=== PATIENT | male | born 1995 | race Hispanic/Latino ===

== ENCOUNTER 2017-03-09 07:45 | Emergency (ER) | payer OTHER ==
[~2017-03-09] VITALS: Ht 180.3 cm; Wt 81.5 kg
[2017-03-09] MEDS ORDERED: TYLE325C PO (07:59)
[2017-03-09] MEDS ORDERED: MOTR200T44 PO (07:59)
[2017-03-09] MEDS ORDERED: MAGIC MOUTHWASH SUSPENSION BTL SS ONE (08:30)
[2017-03-09] MEDS ORDERED: NS 1,000 ML IV ONE (08:30)
[2017-03-09] MEDS ORDERED: ACETAMINOPHEN SUSP DYE FREE 160 MG/5 ML UDC PO ONE (08:30)
[2017-03-09] MEDS ORDERED: KETOROLAC 30 MG/ML VIAL (J1885) IV ONE (08:30)
[2017-03-09] MEDS ORDERED: dexameTHASONE 20 MG/5 ML VIAL (J1100) IV ONE (08:30)
[2017-03-09 09:29] LABS: BASO % 0.3 % (0.0-1.0); IMMATURE GRANULOCYTE % 0.6 % (0-0); LYMPH # 1.4 10^3/uL (1.5-6.5); LYMPH % 8.8 % (24.0-44.0); MEAN CORPUSCULAR HEMOGLOBIN 31.3 pg (27.0-33.0); MEAN CORPUSCULAR HGB CONC 33.4 g/dl (32.0-36.5); MEAN CORPUSCULAR VOLUME 93.6 fl (80.0-96.0); MONO % 12.8 % (0.0-5.0); NEUTROPHILS % 77.5 % (36.0-66.0); PLATELET COUNT, AUTOMATED 212 10^3/uL (150-450); RED CELL DISTRIBUTION WIDTH 13.2 % (11.5-14.5); WHITE BLOOD COUNT 15.4 10^3/uL (4.0-10.0)
[2017-03-09 09:38] LABS: ANION GAP 9 MEQ/L (8-16); BLOOD UREA NITROGEN 14 MG/DL (7-18); CALCIUM LEVEL 9.3 MG/DL (8.5-10.1); CARBON DIOXIDE LEVEL 28 MEQ/L (21-32); CHLORIDE LEVEL 100 MEQ/L (98-107); CREATININE FOR GFR 1.03 MG/DL (0.70-1.30); GLUCOSE, FASTING 86 MG/DL (70-105); POTASSIUM SERUM 3.9 MEQ/L (3.5-5.1); SODIUM LEVEL 137 MEQ/L (136-145)
[2017-03-09 10:06] LABS: ERYTHROCYTE SEDIMENTATION RATE 7 mm/hr (0-15)
[2017-03-09] MEDS ORDERED: ISOVUE-370 76% 100ML VIAL (Q9967) As Ordered ONE (10:08)
--- NOTE | 2017-03-09 11:13 | REP ---
CT NECK WITH CONTRAST: HISTORY: Swelling. CONTRAST: Isovue 370, 75 mL. Calcification is present in the right tonsil. This is secondary to previous inflammatory disease. There is enlargement of the tonsils greater on the left than on the right. There is medial extension into the soft palate. There is inferior extension into the lateral perkins of the jany- and upper hypopharynx. There is mild mass effect on the jany- and minimal mass effect on the hypopharynx. The nasopharynx, larynx and subglottic trachea are normal in appearance. The salivary and thyroid glands are normal in size and density. An enlarged lymph node 1.1 cm in width is present in the right internal jugular chain at the level of the hypopharynx. Enlarged lymph nodes 1.2 cm in width are present in the left internal jugular chain at the level of the jany- and hypopharynx. Small lymph nodes less than cm in size are present in the posterior triangles, submandibular and submental areas. The lung apices are clear. Minimal mucosal thickening is present in the right maxillary sinus. IMPRESSION: The above findings are consistent with tonsillitis and lymphadenitis. There is mild mass effect on the jany- and minimal mass effect on the upper hypopharynx. Signed by Sami Lew MD 03/09/2017 11:53 A
[2017-03-09] MEDS ORDERED: AUGM875T28 PO (11:40)
[2017-03-09] MEDS ORDERED: MAGICMW SS ×2 (11:40→14:00)
[2017-03-09 11:42] VITALS: BP 106/63
== END 2017-03-09 11:47 | disposition home or self-care (01) ==
LOC: M ED 07:45
DX: J03.90 Acute tonsillitis, unspecified (principal); I88.9 Nonspecific lymphadenitis, unspecified
CPT/HCPCS: 70491; 80048; 85025; 85652; 86140; 96361; 96374; 96375; 99284; J1100; J1885; Q9967